=== PATIENT | male | born 1995 | race Caucasian/White ===

== ENCOUNTER 2016-12-07 00:40 | Inpatient (IN) | payer OTHER ==
[2016-12-07] VITALS (20 sets, daily range): BP systolic 109–147; BP diastolic 64–95; PULSE 77–95; TEMP 35.7–38.1; O2SAT 96–100; Ht 180.3 cm; Wt 110.5 kg
[~2016-12-07] VITALS: Ht 180.3 cm; Wt 110.5 kg
[2016-12-07] MEDS ORDERED: RAPID SEQUENCE INDUCTION BAG ONE (00:52)
[2016-12-07] MEDS ORDERED: SODIUM CHLORIDE 0.9% 1000ML 1,000 ML IV STA (01:02)
[2016-12-07] MEDS ORDERED: PROPOFOL IV EMULSION 10 MG/ML 100 ML VIAL IV ONE (01:02)
--- NOTE | 2016-12-07 01:11 | EMERGENCY ROOM VISIT NOTE ---
History Report prepared by Elysia: Chetan Rivas Under the Supervision of: Dr. Jeff Allen D.O. 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 This history is limited secondary to the patient's intoxication. The patient was found unresponsive. He has a bruise to his arm and face. 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 (global) Symptom Intensity: severe Quality: other (ETOH) Timing: constant Review of Systems ROS is limited secondary to the patient's intoxication Past Medical & Surgical Medical Problems: (1) Acute respiratory failure requiring reintubation (2) Alcohol overdose Unable to complete secondary to the patient's intoxication Family History Unable to complete secondary to the patient's intoxication Social History Unable to complete secondary to the patient's intoxication Current/Historical Medications Scheduled PRN Fluticasone Propionate (Nasal) (Flonase Allergy Relief), 1 SPRAY SELVIN DAILY PRN for ALLERGY SX Allergies Coded Allergies: No Known Allergies (Unverified , 12/07/16) Physical Exam Vital Signs Date Time Temp Pulse Resp B/P (MAP) Pulse Ox O2 Delivery O2 Flow Rate FiO2 12/07/16 01:50 106/75 12/07/16 01:45 68 20 99 Mechanical Ventilator 12/07/16 01:40 114/78 12/07/16 01:35 66 20 100 12/07/16 01:30 119/77 12/07/16 01:26 131/87 12/07/16 01:25 71 24 12/07/16 01:12 100 12/07/16 01:10 70 21 122/80 98 Mechanical Ventilator 12/07/16 01:09 98 Mechanical Ventilator 12/07/16 01:08 77 12/07/16 01:01 57 18 139/82 12/07/16 00:45 71 16 79 Room Air Physical Exam GENERAL: Cyanotic in the face, unresponsive upon arrival, pulse ox was less than 72, diaphoretic. HENT: Normocephalic, atraumatic. Oral secretions present. EYES: Normal conjunctiva. Sclera non-icteric. NECK: Supple. No nuchal rigidity. FROM. No JVD. RESPIRATORY: Decreased respiratory rate, but breath sounds are equal. CARDIAC: Regular rate, normal rhythm. Extremities warm and well perfused. Pulses equal. ABDOMEN: Soft, non-distended. No tenderness to palpation. No rebound or guarding. No masses. RECTAL: Deferred. MUSCULOSKELETAL: Chest examination reveals no tenderness. The back is symmetrical on inspection without obvious abnormality. There is no CVA tenderness to palpation. No joint edema. Trauma to the right shoulder with ecchymosis. LOWER EXTREMITIES: Calves are equal size bilaterally and non-tender. No edema. No discoloration. NEURO: Unresponsive. SKIN: No rash or jaundice noted. Medical Decision & Procedures ER Provider Diagnostic Interpretation: Radiology results as stated below per my review and radiologist interpretation: CHEST X-RAY 1 VIEW: Endotracheal tube in good position, no pneumothorax or infiltrate. Per me. CT HEAD: No acute intracranial findings or skull fracture. Sinus disease with some fluid in the sinuses. CT C SPINE: No acute fracture. Straightening cervical lordosis. Endotracheal tube. Possible thyroid nodules. Artifact and lack of soft tissue windows limit evaluation to some degree. Radiologist: Tor Chandler M.D. Laboratory Results 12/07/16 00:50 Red Blood Count 4.86, Mean Corpuscular Volume 83.1, Mean Corpuscular Hemoglobin 29.6, Mean Corpuscular Hemoglobin Concent 35.6, Mean Platelet Volume 8.7, Neutrophils (%) (Auto) 45.2, Lymphocytes (%) (Auto) 43.8, Monocytes (%) (Auto) 7.0, Eosinophils (%) (Auto) 3.6, Basophils (%) (Auto) 0.3, Neutrophils # (Auto) 4.29, Lymphocytes # (Auto) 4.17, Monocytes # (Auto) 0.67, Eosinophils # (Auto) 0.34, Basophils # (Auto) 0.03 12/07/16 00:50 Test 12/07/16 00:50 12/07/16 01:40 White Blood Count 9.51 K/uL (4.8-10.8) Red Blood Count 4.86 M/uL (4.7-6.1) Hemoglobin 14.4 g/dL (14.0-18.0) Hematocrit 40.4 % (42-52) Mean Corpuscular Volume 83.1 fL (80-100) Mean Corpuscular Hemoglobin 29.6 pg (25-34) Mean Corpuscular Hemoglobin Concent 35.6 g/dl (32-36) Platelet Count 253 K/uL (130-400) Mean Platelet Volume 8.7 fL (7.4-10.4) Neutrophils (%) (Auto) 45.2 % Lymphocytes (%) (Auto) 43.8 % Monocytes (%) (Auto) 7.0 % Eosinophils (%) (Auto) 3.6 % Basophils (%) (Auto) 0.3 % Neutrophils # (Auto) 4.29 K/uL (1.4-6.5) Lymphocytes # (Auto) 4.17 K/uL (1.2-3.4) Monocytes # (Auto) 0.67 K/uL (0.11-0.59) Eosinophils # (Auto) 0.34 K/uL (0-0.5) Basophils # (Auto) 0.03 K/uL (0-0.2) RDW Standard Deviation 35.4 fL (36.4-46.3) RDW Coefficient of Variation 11.7 % (11.5-14.5) Immature Granulocyte % (Auto) 0.1 % Immature Granulocyte # (Auto) 0.01 K/uL (0.00-0.02) Prothrombin Time 10.7 SECONDS (9.0-12.0) Prothromb Time International Ratio 1.0 (0.9-1.1) Activated Partial Thromboplast Time 23.3 SECONDS (21.0-31.0) Partial Thromboplastin Ratio 0.9 Anion Gap 6.0 mmol/L (3-11) Estimated GFR () 111.4 Estimated GFR (Non- 96.1 BUN/Creatinine Ratio 14.0 (10-20) Calcium Level 7.9 mg/dl (8.5-10.1) Magnesium Level 2.0 mg/dl (1.8-2.4) Total Bilirubin 0.4 mg/dl (0.2-1) Direct Bilirubin < 0.1 mg/dl (0-0.2) Aspartate Amino Transf (AST/SGOT) 13 U/L (15-37) Alanine Aminotransferase (ALT/SGPT) 20 U/L (12-78) Alkaline Phosphatase 87 U/L (45-117) Total Creatine Kinase 161 U/L (39-308) Total Protein 6.4 gm/dl (6.4-8.2) Albumin 3.5 gm/dl (3.4-5.0) Salicylates Level < 1.7 mg/dl (2.8-20) Acetaminophen Level < 2 ug/ml (10-30) Ethyl Alcohol mg/dL 235.0 mg/dl (0-3) Urine Color YELLOW Urine Appearance CLEAR (CLEAR) Urine pH 5.0 (4.5-7.5) Urine Specific [place] 1.014 (1.000-1.030) Urine Protein NEG (NEG) Urine Glucose (UA) NEG (NEG) Urine Ketones NEG (NEG) Urine Occult Blood TRACE (NEG) Urine Nitrite NEG (NEG) Urine Bilirubin NEG (NEG) Urine Urobilinogen NEG (NEG) Urine Leukocyte Esterase NEG (NEG) Urine WBC (Auto) 1-5 /hpf (0-5) Urine RBC (Auto) 0-4 /hpf (0-4) Urine Hyaline Casts (Auto) 0 /lpf (0-5) Urine Epithelial Cells (Auto) 5-10 /lpf (0-5) Urine Bacteria (Auto) NEG (NEG) Urine Opiates Screen NEG (NEG) Urine Methadone, Qualitative NEG (NEG) Urine Barbiturates NEG (NEG) Urine Phencyclidine (PCP) Level NEG (NEG) Ur Amphetamine/Methamphetamine NEG (NEG) MDMA (Ecstasy) Screen NEG (NEG) Urine Benzodiazepines Screen NEG (NEG) Urine Cocaine Metabolite NEG (NEG) Urine Marijuana (THC) NEG (NEG) Laboratory results reviewed by me Medications Administered Medications (Trade) Dose Ordered Sig/Raul Route Start Time Stop Time Status Last Admin Dose Admin Miscellaneous (Rapid Sequence Induction Bag) 1 ea STK-MED ONCE N/A 12/07/16 00:52 12/07/16 00:53 DC 12/07/16 00:52 1 EA Propofol (Diprivan Iv Emulsion 100ml Vial) 1 dose STK-MED ONCE IV 12/07/16 01:02 12/07/16 01:03 DC 12/07/16 01:02 1 DOSE Sodium Chloride 1,000 ml @ 999 mls/hr Q1H1M STAT IV 12/07/16 01:02 12/07/16 02:02 DC 12/07/16 01:37 999 MLS/HR Propofol (Diprivan Iv Emulsion 100ml Vial) 1 dose UD PRN IV 12/07/16 01:54 12/10/16 01:53 12/07/16 04:18 1 DOSE Midazolam HCl 250 ml @ 0 mls/hr Q0M PRN IV 12/07/16 01:40 01/06/17 01:39 12/07/16 03:02 10 MLS/HR Procedure Endotracheal Intubation Indication: respiratory failure and airway protection secondary to altered mental status. The patient was on 100% oxygen via NRB prior to the procedure. Suction, airway equipment, RSI drugs, respiratory equipment, and appropriate personnel were prepared prior to the initiation of the procedure. A time out was taken. Induction was performed with 20 mg IV Etomidate 120 mg IV Succinylcholine. After observing the clinical benefit of the medications, the airway was easily visualized utilizing a laryngoscope. A 7.5 size ETT tube was placed atraumatically to 23 cm using standard technique with good inline stabilization provided by another provider. The cuff inflated without signs of malfunction. There were bilateral breath sounds, positive colormetric change, no gastric sounds, a good capnography waveform, and post procedure pulse oximetry was 98%. Post intubation sedation and paralysis was administered using Diprivan. There were no complications. ECG Indication: altered mental status Rate (beats per minute): 66 Rhythm: normal sinus Findings: no acute ischemic change, other (Normal intervals, normal axis) ED Course 0044: The patient was evaluated in room B11A. A complete history and physical exam was performed. 0055: I performed an endotracheal intubation at this time. Please see the procedure note for more information. 0102: Ordered Sodium Chloride 1000 ml @ 999 mls/hr IV 0131: Upon reexamination, the patient was resting. I discussed the test results and treatment plan with Dr. Violet Sun [facility] [place] The patient will be evaluated for further management. Medical Decision Differential diagnosis: Etiologies such as alcohol intoxication, toxicologic, infection, hypoglycemia, electrolyte abnormalities, cardiac sources, intracerebral event, neurologic, as well as others were entertained. Immediately upon arrival the patient was hypoxic cyanotic and blue in the face with sonorous respirations. Patient reportedly overdosed on alcohol. There is no obvious head trauma seen there is reported trauma to his right shoulder with ecchymosis. No history available to me from the patient. Patient was moved immediately to the critical care room and was intubated by me for airway protection and obtundation; case is discussed with the hospitalist for admission for ethanol intoxication he did undergo CT imaging which was negative Medication Reconcilliation Current Medication List: was personally reviewed by me Blood Pressure Screening Patient's blood pressure: Normal blood pressure Blood pressure disposition: Did not require urgent referral Consults Time Called: 0128 Consulting Physician: Dr. Lazo - LAYA Returned Call: [phone] Discussed the patient's case. The patient will be evaluated for further treatment and disposition. Impression Primary Impression: Acute alcohol intoxication Additional Impressions: Hypoxia Acute hypokalemia Scribe Attestation The scribe's documentation has been prepared under my direction and personally reviewed by me in its entirety. I confirm that the note above accurately reflects all work, treatment, procedures, and medical decision making performed by me. Departure Information Dispostion Being Evaluated By Hospitalist Referrals No Doctor, Assigned (PCP) Patient Instructions My [facility] Problem Qualifiers
[2016-12-07 01:12] LABS: BASO % 0.3 %; BASO ABS # 0.03 K/uL (0-0.2); COMPLETE YES; EOS % 3.6 %; HEMATOCRIT 40.4 % (42-52); IG% 0.1 %; LYMPH % 43.8 %; LYMPH ABS # 4.17 K/uL (1.2-3.4); MEAN CELL VOLUME 83.1 fL (80-100); MEAN CORPUSCULAR HEMOGLOBIN 29.6 pg (25-34); MEAN CORPUSCULAR HGB CONC 35.6 g/dl (32-36); MEAN PLATELET VOLUME 8.7 fL (7.4-10.4); NEUT % 45.2 %; PLATELET COUNT 253 K/uL (130-400); RED BLOOD COUNT 4.86 M/uL (4.7-6.1); WHITE BLOOD COUNT 9.51 K/uL (4.8-10.8)
[2016-12-07 01:28] LABS: PARTIAL THROMBOPLASTIN RATIO 0.9; PROTHROMBIN TIME (PATIENT) 10.7 SECONDS (9.0-12.0)
[2016-12-07 01:29] LABS: ALT/SGPT 20 U/L (12-78); AST/SGOT 13 U/L (15-37); BLOOD UREA NITROGEN 15 mg/dl (7-18); CALCIUM 7.9 mg/dl (8.5-10.1); CARBON DIOXIDE 27 mmol/L (21-32); CHLORIDE 108 mmol/L (98-107); GLUCOSE 142 mg/dl (70-99); POTASSIUM 3.2 mmol/L (3.5-5.1); SODIUM 141 mmol/L (136-145)
[2016-12-07 01:32] LABS: ALKALINE PHOSPHATASE 87 U/L (45-117)
[2016-12-07] MEDS ORDERED: MIDAZOLAM 125MG/250ML D5W 250 ML IV PRN (01:40)
[2016-12-07] MEDS ORDERED: MoRPHine SULFATE 2 MG/ML CARP IV PRN (01:45)
[2016-12-07 01:46] LABS: ACETAMINOPHEN < 2 ug/ml (10-30)
[2016-12-07 01:51] LABS: URINE APPEARANCE CLEAR (CLEAR); URINE BILIRUBIN NEG (NEG); URINE COLOR YELLOW; URINE NITRITE NEG (NEG); URINE SPECIFIC GRAVITY 1.014 (1.000-1.030); UROBILINOGEN NEG (NEG)
[2016-12-07] MEDS ORDERED: PROPOFOL IV EMULSION 10 MG/ML 100 ML VIAL IV PRN (01:54)
[2016-12-07 02:03] LABS: MANUAL MICROSCOPIC REQUIRED? NO; REVIEW REQ? NO
[2016-12-07] MEDS ORDERED: FLUT0.15 NAE (02:08)
[2016-12-07 02:09] LABS: BENZODIAZEPINE, URINE NEG (NEG); COCAINE,URINE NEG (NEG); PHENCYCLIDINE, URINE NEG (NEG)
[2016-12-07] MEDS ORDERED: NSS + 20MEQ KCL 1000ML 1,000 ML IV SCH (03:00)
--- NOTE | 2016-12-07 03:33 | History and Physical ---
History & Physical Date & Time of Service: Dec 07, 2016 at 03:17 Chief Complaint: Acute Respiratory Failure Requiring Reintubation, Primary Care Physician: No Doctor, Assigned History of Present Illness Source: hospital records The patient is a 21-year-old male who presents emergency department with alcohol overdose after being found unresponsive just prior to arrival. He has a bruise to his arm and face. In the emergency department he was intubated for airway protection by ED personnel. His history of present illness is otherwise limited, as the patient is unresponsive. 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 Physical Exam Vital Signs Date Time Temp Pulse Resp B/P (MAP) Pulse Ox O2 Delivery O2 Flow Rate FiO2 12/07/16 03:12 50 12/07/16 03:00 36.2 83 13 122/78 (93) 100 Mechanical Ventilator 50 12/07/16 02:45 36.1 87 13 147/88 (107) 100 Mechanical Ventilator 50 12/07/16 02:33 82 13 132/76 (94) 100 Mechanical Ventilator 50 12/07/16 02:15 74 20 119/86 100 12/07/16 02:10 77 13 119/86 (97) 100 Mechanical Ventilator 50 12/07/16 02:00 77 13 109/81 (90) 100 Mechanical Ventilator 50 12/07/16 01:50 106/75 12/07/16 01:45 68 20 99 Mechanical Ventilator 12/07/16 01:40 114/78 12/07/16 01:35 66 20 100 12/07/16 01:30 119/77 12/07/16 01:26 131/87 12/07/16 01:25 71 24 12/07/16 01:12 100 12/07/16 01:10 70 21 122/80 98 Mechanical Ventilator 12/07/16 01:09 98 Mechanical Ventilator 12/07/16 01:08 77 9/9/17 01:01 57 18 139/82 12/07/16 00:45 71 16 79 Room Air The patient is intubated, unresponsive and sedated. HEENT--PERRL, EOMI, mucous membranes and oropharynx dry. Neck--supple, no JVD or bruits, thyroid normal, trachea midline, no adenopathy. Heart--normal S1 and S2, no extra beats, no murmurs, rubs or gallops. Lungs--few coarse breath sounds bilaterally. Abdomen--normal bowel sounds and soft. nondistended, no hernias or masses, no organomegaly. Extremities--no cyanosis, clubbing or edema. There are good distal pulses b/l. Dermatologic--normal skin turgor, normal color, warm and dry, no abnormal lymph nodes, no rash. Neurologic--grossly normal, deferred exam due to intubated state Rheumatologic--sedated and intubated Psychiatric--sedated and intubated Diagnostics Laboratory Results Results Past 24 Hours Test 12/07/16 00:50 12/07/16 01:40 Range/Units White Blood Count 9.51 4.8-10.8 K/uL Red Blood Count 4.86 4.7-6.1 M/uL Hemoglobin 14.4 14.0-18.0 g/dL Hematocrit 40.4 42-52 % Mean Corpuscular Volume 83.1 80-100 fL Mean Corpuscular Hemoglobin 29.6 25-34 pg Mean Corpuscular Hemoglobin Concent 35.6 32-36 g/dl Platelet Count 253 130-400 K/uL Mean Platelet Volume 8.7 7.4-10.4 fL Neutrophils (%) (Auto) 45.2 % Lymphocytes (%) (Auto) 43.8 % Monocytes (%) (Auto) 7.0 % Eosinophils (%) (Auto) 3.6 % Basophils (%) (Auto) 0.3 % Neutrophils # (Auto) 4.29 1.4-6.5 K/uL Lymphocytes # (Auto) 4.17 1.2-3.4 K/uL Monocytes # (Auto) 0.67 0.11-0.59 K/uL Eosinophils # (Auto) 0.34 0-0.5 K/uL Basophils # (Auto) 0.03 0-0.2 K/uL RDW Standard Deviation 35.4 36.4-46.3 fL RDW Coefficient of Variation 11.7 11.5-14.5 % Immature Granulocyte % (Auto) 0.1 % Immature Granulocyte # (Auto) 0.01 0.00-0.02 K/uL Prothrombin Time 10.7 9.0-12.0 SECONDS Prothromb Time International Ratio 1.0 0.9-1.1 Activated Partial Thromboplast Time 23.3 21.0-31.0 SECONDS Partial Thromboplastin Ratio 0.9 Sodium Level 141 136-145 mmol/L Potassium Level 3.2 3.5-5.1 mmol/L Chloride Level 108 98-107 mmol/L Carbon Dioxide Level 27 21-32 mmol/L Anion Gap 6.0 3-11 mmol/L Blood Urea Nitrogen 15 7-18 mg/dl Creatinine 1.10 0.60-1.40 mg/dl Estimated GFR () 111.4 Estimated GFR (Non- 96.1 BUN/Creatinine Ratio 14.0 10-20 Random Glucose 142 70-99 mg/dl Calcium Level 7.9 8.5-10.1 mg/dl Magnesium Level 2.0 1.8-2.4 mg/dl Total Bilirubin 0.4 0.2-1 mg/dl Direct Bilirubin < 0.1 0-0.2 mg/dl Aspartate Amino Transf (AST/SGOT) 13 15-37 U/L Alanine Aminotransferase (ALT/SGPT) 20 12-78 U/L Alkaline Phosphatase 87 45-117 U/L Total Creatine Kinase 161 39-308 U/L Total Protein 6.4 6.4-8.2 gm/dl Albumin 3.5 3.4-5.0 gm/dl Salicylates Level < 1.7 2.8-20 mg/dl Acetaminophen Level < 2 10-30 ug/ml Ethyl Alcohol mg/dL 235.0 0-3 mg/dl Urine Color YELLOW Urine Appearance CLEAR CLEAR Urine pH 5.0 4.5-7.5 Urine Specific [place] 1.014 1.000-1.030 Urine Protein NEG NEG Urine Glucose (UA) NEG NEG Urine Ketones NEG NEG Urine Occult Blood TRACE NEG Urine Nitrite NEG NEG Urine Bilirubin NEG NEG Urine Urobilinogen NEG NEG Urine Leukocyte Esterase NEG NEG Urine WBC (Auto) 1-5 0-5 /hpf Urine RBC (Auto) 0-4 0-4 /hpf Urine Hyaline Casts (Auto) 0 0-5 /lpf Urine Epithelial Cells (Auto) 5-10 0-5 /lpf Urine Bacteria (Auto) NEG NEG Urine Opiates Screen NEG NEG Urine Methadone, Qualitative NEG NEG Urine Barbiturates NEG NEG Urine Phencyclidine (PCP) Level NEG NEG Ur Amphetamine/Methamphetamine NEG NEG MDMA (Ecstasy) Screen NEG NEG Urine Benzodiazepines Screen NEG NEG Urine Cocaine Metabolite NEG NEG Urine Marijuana (THC) NEG NEG Microbiology Results 12/07/16 MRSA DNA Surveillance Screen, Received Pending Diagnostic Radiology CT of the head shows no acute findings. CT of the cervical spine shows paraspinal muscle spasm, otherwise no acute findings. CXR normal Impression Assessment and Plan Alcohol overdose/unresponsive state/intubated for airway protection-- The patient will be admitted to the ICU. Continue current ventilator settings, and check an ABG in 30 minutes and every morning. Mildly hypokalemic with a potassium of 3.2, and will be started normal saline with KCl 20 mEq at 25 ML's per hour. Mildly hyperglycemic with blood sugar of 142, with hemoglobin A1c. Follow serial BMP and magnesium levels. Chest x-ray reviewed with endotracheal tube in good position. CT of head and cervical spine show no acute findings. Propofol infusion for sedation. Add Versed infusion if propofol maxed. If necessary, we'll change to Precedex. Total critical care time 55 minutes Level of Care Critical Care Advanced Directives Existing Advance Directive: No Resuscitation Status FULL RESUSCITATION VTE Prophylaxis VTE Risk Assessment Done? Y/N: Yes Risk Level: Moderate Given or contraindicated: SCD's Social Service Consult None Apply
--- NOTE | 2016-12-07 06:20 | DIAGNOSTIC IMAGING REPORT ---
CERVICAL SPINE W/O CT DOSE: HISTORY: Trauma trauma TECHNIQUE: Multiaxial CT images of the cervical spine were performed and reformatted in the sagittal and coronal plane without the use of contrast. A dose lowering technique was utilized adhering to the principles of ALARA. COMPARISON: None. FINDINGS: No fractures. No subluxation. Prevertebral soft tissues and the C1-C2 interval are intact. No pneumothorax. IMPRESSION: No fractures within the cervical spine. Endotracheal tube in position The above report was generated using voice recognition software. It may contain grammatical, syntax or spelling errors. Electronically signed by: Josse Whitman M.D. 12/07/2016 6:19 AM Dictated Date/Time: 12/07/2016 6:17 AM
--- NOTE | 2016-12-07 06:21 | DIAGNOSTIC IMAGING REPORT ---
HEAD WITHOUT CONTRAST (CT) CT DOSE: 1182.23 mGy.cm HISTORY: Trauma trauma TECHNIQUE: Multiaxial CT images of the head were performed without the use of intravenous contrast. A dose lowering technique was utilized adhering to the principles of ALARA. Comparison: None. Findings: Moderate mucosal thickening of the sinuses The calvarium and skull base are intact. The ventricles and sulci are within normal limits. There is no mass, hematoma, midline shift, or acute infarct. Impression: No acute intracranial abnormality. Moderate mucosal thickening of the sinuses The above report was generated using voice recognition software. It may contain grammatical, syntax or spelling errors. Electronically signed by: Josse Whitman M.D. 12/07/2016 6:20 AM Dictated Date/Time: 12/07/2016 6:19 AM
--- NOTE | 2016-12-07 06:22 | DIAGNOSTIC IMAGING REPORT ---
CHEST ONE VIEW PORTABLE CLINICAL HISTORY: et tube position COMPARISON STUDY: No previous studies for comparison. FINDINGS: Endotracheal tube 4 cm above the beatrice. Lungs are clear. Diaphragms smooth. Heart top limits normal terms of size. IMPRESSION: Endotracheal tube 4 cm above the beatrice. The lungs are clear. The above report was generated using voice recognition software. It may contain grammatical, syntax or spelling errors. Electronically signed by: Josse Whitman M.D. 12/07/2016 6:21 AM Dictated Date/Time: 12/07/2016 6:20 AM
[2016-12-07] MEDS ORDERED: PNEUMOCOCCAL ADMINISTRATION CHARGE ONE (08:00)
[2016-12-07] MEDS ORDERED: PNEUMOCOCCAL POLYSACCHARIDES 25 MCG/0.5 ML VIAL/SYR IM. ONE (08:00)
[2016-12-07] MEDS ORDERED: DexMEDEtomidine IV DRIP IV STA (08:57)
[2016-12-07] MEDS ORDERED: THIAMINE HCL 100 MG/ML 2 ML VIAL IM ONE (09:00)
[2016-12-07] MEDS ORDERED: THIAMINE HCL 100 MG/ML 2 ML VIAL IM SCH (09:00)
[2016-12-07] MEDS ORDERED: CALCIUM GLUCONATE 10% 1,000 MG in SODIUM CHLORIDE 0.9% 50ML 50 ML IV STA (09:01)
[2016-12-07] MEDS ORDERED: DexMEDEtomidine HCL INJ 200 MCG in SODIUM CHLORIDE 0.9% 50ML 48 ML IV PRN (09:15)
[2016-12-07] MEDS: POTASSIUM CHLR 10 MEQ / WTR 10 MEQ in PREMIXED WATER 100 ML IV SCH ×3 (09:25→11:15)
--- NOTE | 2016-12-07 09:27 | Critical Care Consultation ---
Critical Care Consultation Date of Consultation: Dec 07, 2016. Attending Physician: Adair Sen M.D. Reason for Consultation: alcohol intoxication with respiratory compromise due to inability to protect airway intubated History of Present Illness This is a 21 yo male patient who is otherwise healthy per his parents with no chronic medical illnesses except for seasonal allergies for which he uses flonase. He was brought in to the ED unresponsive and found to have al alcohol level of 235, reported to have a briuse on his face and arm and was intubated sedated and brought to MICU. I believe because he must have been unable to protect the airway. His ICU course has been uneventful CT head and C spine are negative for fractures of focal pathology. Only muscle spasm in the neck was seen. Parents at bedside deny the patient has any other recreational drug use and he has a negative urine tox screen for detectable drugs. 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 Allergies Coded Allergies: No Known Allergies (Unverified , 12/07/16) Home Medications Scheduled PRN Fluticasone Propionate (Nasal) (Flonase Allergy Relief), 1 SPRAY SELVIN DAILY PRN for ALLERGY SX Current Inpatient Medications Current Inpatient Medications Medications (Trade) Dose Ordered Sig/Raul Route Start Time Stop Time Status Last Admin Dose Admin Potassium Chloride/Sodium Chloride 1,000 ml @ 125 mls/hr Q8H IV 12/07/16 03:00 01/06/17 02:59 12/07/16 03:17 125 MLS/HR Morphine Sulfate (MoRPHine SULFATE INJ) 2 mg Q2H PRN IV 12/07/16 01:45 12/21/16 01:44 Propofol (Diprivan Iv Emulsion 100ml Vial) 1 dose UD PRN IV 12/07/16 01:54 12/10/16 01:53 12/07/16 04:18 1 DOSE Midazolam HCl 250 ml @ 0 mls/hr Q0M PRN IV 12/07/16 01:40 01/06/17 01:39 12/07/16 03:02 10 MLS/HR Review of Systems The parents say he was not complaining of any other issues but he had been with friends so it is unclear and he is unable to provide ROS. Physical Exam Date Time Temp Pulse Resp B/P (MAP) Pulse Ox O2 Delivery O2 Flow Rate FiO2 12/07/16 05:21 50 12/07/16 05:15 36.3 84 21 125/81 (96) 100 Mechanical Ventilator 50 12/07/16 05:00 36.1 87 21 131/87 (102) 100 Mechanical Ventilator 50 12/07/16 04:45 36.0 88 18 131/95 (107) 100 Mechanical Ventilator 50 12/07/16 04:30 35.8 86 19 140/89 (106) 100 Mechanical Ventilator 50 12/07/16 04:15 35.7 93 19 132/92 (105) 100 Mechanical Ventilator 50 12/07/16 04:00 35.7 83 18 125/82 (96) 100 Mechanical Ventilator 50 12/07/16 04:00 50 12/07/16 04:00 100 Mechanical Ventilator 50 12/07/16 03:45 35.8 84 13 119/79 (92) 100 Mechanical Ventilator 50 12/07/16 03:30 35.9 86 19 120/75 (90) 100 Mechanical Ventilator 50 12/07/16 03:15 36.1 78 13 120/76 (91) 100 Mechanical Ventilator 50 12/07/16 03:12 50 12/07/16 03:00 36.2 83 13 122/78 (93) 100 Mechanical Ventilator 50 12/07/16 02:45 36.1 87 13 147/88 (107) 100 Mechanical Ventilator 50 12/07/16 02:45 36.1 87 147/88 98 Mechanical Ventilator 50 12/07/16 02:33 82 13 132/76 (94) 100 Mechanical Ventilator 50 12/07/16 02:15 74 20 119/86 100 12/07/16 02:10 77 13 119/86 (97) 100 Mechanical Ventilator 50 12/07/16 02:00 77 13 109/81 (90) 100 Mechanical Ventilator 50 12/07/16 01:50 106/75 12/07/16 01:45 68 20 99 Mechanical Ventilator 12/07/16 01:40 114/78 12/07/16 01:35 66 20 100 12/07/16 01:30 119/77 12/07/16 01:26 131/87 12/07/16 01:25 71 24 12/07/16 01:12 100 9/9/17 01:10 70 21 122/80 98 Mechanical Ventilator 12/07/16 01:09 98 Mechanical Ventilator 12/07/16 01:08 77 12/07/16 01:01 57 18 139/82 12/07/16 00:45 71 16 79 Room Air General Appearance: well-appearing, other (sedated intubated with trach collar but moves head and all four extremities to tacticle stimuli) Head: normocephalic, atraumatic, other (I see no large bruises on the face ) Eyes: PERRLA, no discharge, sclerae normal ENT: other (sedated intubated no broken teeth. no blood in the oral cavity ET tube in place rosa 25 cm on the lip) Neck: no stridor, other (cervical collar in place) Respiratory: breath sounds normal, clear to auscultation Cardiovasular: regular rate/rhythm, normal S1S2, no M/G/R Abdomen: non tender, no guarding, other (soft ) Genitourinary - Male: external genitalia normal Upper Extremities: no edema, no deformity Lower Extremities: no edema, no deformity Pulses: radial (R) (2+), radial (L) (2+), dorsalis pedis (R) (2+), dorsalis pedis (L) (2+) Neuro: other (sedated and intubated but moves all 4 extremities) Laboratory Results Last 24 Hours Test 12/07/16 00:50 12/07/16 01:40 12/07/16 06:37 White Blood Count 9.51 K/uL Red Blood Count 4.86 M/uL Hemoglobin 14.4 g/dL Hematocrit 40.4 % Mean Corpuscular Volume 83.1 fL Mean Corpuscular Hemoglobin 29.6 pg Mean Corpuscular Hemoglobin Concent 35.6 g/dl Platelet Count 253 K/uL Mean Platelet Volume 8.7 fL Neutrophils (%) (Auto) 45.2 % Lymphocytes (%) (Auto) 43.8 % Monocytes (%) (Auto) 7.0 % Eosinophils (%) (Auto) 3.6 % Basophils (%) (Auto) 0.3 % Neutrophils # (Auto) 4.29 K/uL Lymphocytes # (Auto) 4.17 K/uL Monocytes # (Auto) 0.67 K/uL Eosinophils # (Auto) 0.34 K/uL Basophils # (Auto) 0.03 K/uL RDW Standard Deviation 35.4 fL RDW Coefficient of Variation 11.7 % Immature Granulocyte % (Auto) 0.1 % Immature Granulocyte # (Auto) 0.01 K/uL Prothrombin Time 10.7 SECONDS Prothromb Time International Ratio 1.0 Activated Partial Thromboplast Time 23.3 SECONDS Partial Thromboplastin Ratio 0.9 Sodium Level 141 mmol/L Potassium Level 3.2 mmol/L Chloride Level 108 mmol/L Carbon Dioxide Level 27 mmol/L Anion Gap 6.0 mmol/L Blood Urea Nitrogen 15 mg/dl Creatinine 1.10 mg/dl Estimated GFR () 111.4 Estimated GFR (Non- 96.1 BUN/Creatinine Ratio 14.0 Random Glucose 142 mg/dl Calcium Level 7.9 mg/dl Magnesium Level 2.0 mg/dl Total Bilirubin 0.4 mg/dl Direct Bilirubin < 0.1 mg/dl Aspartate Amino Transf (AST/SGOT) 13 U/L Alanine Aminotransferase (ALT/SGPT) 20 U/L Alkaline Phosphatase 87 U/L Total Creatine Kinase 161 U/L Total Protein 6.4 gm/dl Albumin 3.5 gm/dl Salicylates Level < 1.7 mg/dl Acetaminophen Level < 2 ug/ml Ethyl Alcohol mg/dL 235.0 mg/dl Urine Color YELLOW Urine Appearance CLEAR Urine pH 5.0 Urine Specific [place] 1.014 Urine Protein NEG Urine Glucose (UA) NEG Urine Ketones NEG Urine Occult Blood TRACE Urine Nitrite NEG Urine Bilirubin NEG Urine Urobilinogen NEG Urine Leukocyte Esterase NEG Urine WBC (Auto) 1-5 /hpf Urine RBC (Auto) 0-4 /hpf Urine Hyaline Casts (Auto) 0 /lpf Urine Epithelial Cells (Auto) 5-10 /lpf Urine Bacteria (Auto) NEG Urine Opiates Screen NEG Urine Methadone, Qualitative NEG Urine Barbiturates NEG Urine Phencyclidine (PCP) Level NEG Ur Amphetamine/Methamphetamine NEG MDMA (Ecstasy) Screen NEG Urine Benzodiazepines Screen NEG Urine Cocaine Metabolite NEG Urine Marijuana (THC) NEG Bedside Glucose 107 mg/dl Diagnostic Results CT head and CT neck show no bleeds fractures or hematomas neck muscle spasm Assessment & Plan 21 yo admitted with alcohol intoxication required intubation for airway protection. he is hypokalemic and hypocalcemic and those are being addressed neuro add thiamine and folate PO DC propofol start precedex and titrate to maintain patient cooperation Will assess for pain and movement prior to neck collar removal respiratory CPAPOSV once awake ABG look good cardiovascular no active issues renal replete K and Ca UO adequate will DC morin ID no foci of infection no evidence of aspiration DVT prophylaxis will ambulate once awake advance diet to normal when extubated Patient is critically ill and I spent a total of 40 minutes of CC time managing him revieweing chart and obtaining history from parents
[2016-12-07] MEDS ORDERED: THIAMINE HCL INJ 100 MG in SYRINGE 9 ML IV SCH (09:30)
[2016-12-07 10:40] LABS: CKMB/CK RATIO 1.1 (0-3.0)
[2016-12-07 10:42] LABS: ISTAT ALLEN TEST Pass; ISTAT ARTERIAL BLOOD GAS HCO3 25 meq/L (19-24); ISTAT ARTERIAL BLOOD GAS PCO2 48 mmHg (35-46); ISTAT ARTERIAL BLOOD GAS PO2 211 mmHg (80-95); ISTAT ARTERIAL BLOOD GAS pH 7.33 (7.35-7.45); ISTAT CARBON DIOXIDE 26 mEq/l (24-31); ISTAT DELIVERY SYSTEM Ventilator; ISTAT FIO2 40 %; ISTAT PEEP 5; ISTAT RATE 22; ISTAT SITE R Radial; VE 10.4; Vt 463
--- NOTE | 2016-12-07 13:12 | Progress Note ---
Subjective Date of Service: Dec 07, 2016. Subjective Patient is sedated and ventilated family is at the bedside origin respiratory failure felt to be alcohol, which is c-collar is in place as the patient cannot fully have a C-spine clearance was awake and alert CT scan has been negative. Discussed with intensive care doctor this morning we will attempt to extubate him once his sedation from his alcohol is resolved Problem List Medical Problems: (1) Acute alcohol intoxication Status: Acute (2) Acute hypokalemia Status: Acute (3) Hypoxia Status: Acute Review of Systems Review of systems is unable to be obtained due to sedation from alcohol and mechanical ventilation Objective Vital Signs Date Time Temp Pulse Resp B/P (MAP) Pulse Ox O2 Delivery O2 Flow Rate FiO2 12/07/16 10:00 38.1 85 21 127/70 (89) 100 Mechanical Ventilator 30 12/07/16 08:00 100 Mechanical Ventilator 30 12/07/16 08:00 30 12/07/16 08:00 37.8 95 21 128/79 (95) 100 Mechanical Ventilator 30 12/07/16 05:21 50 12/07/16 05:15 36.3 84 21 125/81 (96) 100 Mechanical Ventilator 50 12/07/16 05:00 36.1 87 21 131/87 (102) 100 Mechanical Ventilator 50 12/07/16 04:45 36.0 88 18 131/95 (107) 100 Mechanical Ventilator 50 12/07/16 04:30 35.8 86 19 140/89 (106) 100 Mechanical Ventilator 50 12/07/16 04:15 35.7 93 19 132/92 (105) 100 Mechanical Ventilator 50 12/07/16 04:00 35.7 83 18 125/82 (96) 100 Mechanical Ventilator 50 12/07/16 04:00 50 12/07/16 04:00 100 Mechanical Ventilator 50 12/07/16 03:45 35.8 84 13 119/79 (92) 100 Mechanical Ventilator 50 12/07/16 03:30 35.9 86 19 120/75 (90) 100 Mechanical Ventilator 50 12/07/16 03:15 36.1 78 13 120/76 (91) 100 Mechanical Ventilator 50 12/07/16 03:12 50 12/07/16 03:00 36.2 83 13 122/78 (93) 100 Mechanical Ventilator 50 12/07/16 02:45 36.1 87 13 147/88 (107) 100 Mechanical Ventilator 50 12/07/16 02:45 36.1 87 147/88 98 Mechanical Ventilator 50 12/07/16 02:33 82 13 132/76 (94) 100 Mechanical Ventilator 50 12/07/16 02:15 74 20 119/86 100 12/07/16 02:10 77 13 119/86 (97) 100 Mechanical Ventilator 50 12/07/16 02:00 77 13 109/81 (90) 100 Mechanical Ventilator 50 12/07/16 01:50 106/75 12/07/16 01:45 68 20 99 Mechanical Ventilator 12/07/16 01:40 114/78 12/07/16 01:35 66 20 100 12/07/16 01:30 119/77 12/07/16 01:26 131/87 12/07/16 01:25 71 24 12/07/16 01:12 100 12/07/16 01:10 70 21 122/80 98 Mechanical Ventilator 12/07/16 01:09 98 Mechanical Ventilator 12/07/16 01:08 77 12/07/16 01:01 57 18 139/82 12/07/16 00:45 71 16 79 Room Air Physical Exam General Appearance: WD/WN, + mild distress Eyes: PERRL, sclerae normal Respiratory/Chest: chest non-tender, normal breath sounds Cardiovascular: regular rate, rhythm, no murmur Abdomen: normal bowel sounds, soft Extremities: normal inspection, no pedal edema Skin: normal color, warm/dry, no rash Laboratory Results Last 24 Hours Test 12/07/16 00:50 12/07/16 01:40 12/07/16 06:37 12/07/16 07:58 White Blood Count 9.51 K/uL Red Blood Count 4.86 M/uL Hemoglobin 14.4 g/dL Hematocrit 40.4 % Mean Corpuscular Volume 83.1 fL Mean Corpuscular Hemoglobin 29.6 pg Mean Corpuscular Hemoglobin Concent 35.6 g/dl Platelet Count 253 K/uL Mean Platelet Volume 8.7 fL Neutrophils (%) (Auto) 45.2 % Lymphocytes (%) (Auto) 43.8 % Monocytes (%) (Auto) 7.0 % Eosinophils (%) (Auto) 3.6 % Basophils (%) (Auto) 0.3 % Neutrophils # (Auto) 4.29 K/uL Lymphocytes # (Auto) 4.17 K/uL Monocytes # (Auto) 0.67 K/uL Eosinophils # (Auto) 0.34 K/uL Basophils # (Auto) 0.03 K/uL RDW Standard Deviation 35.4 fL RDW Coefficient of Variation 11.7 % Immature Granulocyte % (Auto) 0.1 % Immature Granulocyte # (Auto) 0.01 K/uL Prothrombin Time 10.7 SECONDS Prothromb Time International Ratio 1.0 Activated Partial Thromboplast Time 23.3 SECONDS Partial Thromboplastin Ratio 0.9 Sodium Level 141 mmol/L Potassium Level 3.2 mmol/L Chloride Level 108 mmol/L Carbon Dioxide Level 27 mmol/L Anion Gap 6.0 mmol/L Blood Urea Nitrogen 15 mg/dl Creatinine 1.10 mg/dl Estimated GFR () 111.4 Estimated GFR (Non- 96.1 BUN/Creatinine Ratio 14.0 Random Glucose 142 mg/dl Calcium Level 7.9 mg/dl Magnesium Level 2.0 mg/dl Total Bilirubin 0.4 mg/dl Direct Bilirubin < 0.1 mg/dl Aspartate Amino Transf (AST/SGOT) 13 U/L Alanine Aminotransferase (ALT/SGPT) 20 U/L Alkaline Phosphatase 87 U/L Total Creatine Kinase 161 U/L Total Protein 6.4 gm/dl Albumin 3.5 gm/dl Salicylates Level < 1.7 mg/dl Acetaminophen Level < 2 ug/ml Ethyl Alcohol mg/dL 235.0 mg/dl Urine Color YELLOW Urine Appearance CLEAR Urine pH 5.0 Urine Specific [place] 1.014 Urine Protein NEG Urine Glucose (UA) NEG Urine Ketones NEG Urine Occult Blood TRACE Urine Nitrite NEG Urine Bilirubin NEG Urine Urobilinogen NEG Urine Leukocyte Esterase NEG Urine WBC (Auto) 1-5 /hpf Urine RBC (Auto) 0-4 /hpf Urine Hyaline Casts (Auto) 0 /lpf Urine Epithelial Cells (Auto) 5-10 /lpf Urine Bacteria (Auto) NEG Urine Opiates Screen NEG Urine Methadone, Qualitative NEG Urine Barbiturates NEG Urine Phencyclidine (PCP) Level NEG Ur Amphetamine/Methamphetamine NEG MDMA (Ecstasy) Screen NEG Urine Benzodiazepines Screen NEG Urine Cocaine Metabolite NEG Urine Marijuana (THC) NEG Bedside Glucose 107 mg/dl Blood Gas Sample Site R Radial Bedside Blood Gas pH (LAB) 7.33 Bedside Blood Gas pCO2 (LAB) 48 mmHg Bedside Blood Gas pO2 (LAB) 211 mmHg Bedside Blood Gas HCO3 (LAB) 25 meq/L Bedside Blood Gas Total CO2 26 mEq/l Bedside Blood Gas Base Excess (LAB) -1.0 meq/L Bedside Blood Gas O2 Saturation 100.0 % Dylan Test Pass Oxygen Delivery Device Ventilator Bedside Oxygen Rate (breaths/min) 22 Blood Gas Minute Ventilation 10.4 Bedside FiO2 40 % Blood Gas Tidal Volume 463 Blood Gas PEEP 5 Test 12/07/16 09:42 12/07/16 12:56 Total Creatine Kinase 805 U/L Creatine Kinase MB 8.5 ng/ml Creatine Kinase MB Ratio 1.1 Troponin I < 0.015 ng/ml Bedside Glucose 93 mg/dl Assessment and Plan 21-year-old male intubated for protection of airway with acute alcohol intoxication Acute respiratory failure with supportive ventilation overnight once alcohol sedation is resolved attempts at extubation will be directed by gunner's mate Rigid cervical collar in place until patient's awake and alert Mother and father at the bedside and were updated on condition
[2016-12-07] MEDS ORDERED: SODIUM CHLORIDE 0.9% 1000ML 1,000 ML IV ONE (13:30)
[2016-12-07 15:05] LABS: BUN/CREATININE RATIO 8.5 (10-20); CALCIUM 8.3 mg/dl (8.5-10.1); CREATININE 1.1 mg/dl (0.60-1.40); PHOSPHORUS 3.7 mg/dl (2.5-4.9); POTASSIUM 4.4 mmol/L (3.5-5.1)
--- NOTE | 2016-12-07 16:23 | Discharge Instructions ---
Discharge Instructions Date of Service Dec 07, 2016. Admission Reason for Admission: Acute Respiratory Failure Requiring Reintubation, Discharge Discharge Diagnosis / Problem: acute alcohol intoxication Discharge Goals Goal(s): Diagnostic testing, Therapeutic intervention Activity Recommendations Activity Limitations: resume your previous activity . Current Hospital Diet Patient's current hospital diet: Regular Diet Discharge Diet Recommended Diet: Regular Diet Pending Studies Studies pending at discharge: no Medical Emergencies . Who to Call and When: Medical Emergencies: If at any time you feel your situation is an emergency, please call 911 immediately. . Non-Emergent Contact Non-Emergency issues call your: Primary Care Provider Call Non-Emergent contact if: temperature is above 101, your pain is unusual for you . . "Provider Documentation" section prepared by Adair Sen. . VTE Core Measure Inpt VTE Proph given/why not?: SCD's
[2016-12-07] MEDS ORDERED: SUCCINYLCHOLINE CHLORIDE 20 MG/ML 10 ML VIAL IV ONE (17:34)
[2016-12-07] MEDS ORDERED: ETOMIDATE 2 MG/ML 20 ML VIAL IV ONE (17:34)
--- NOTE | 2016-12-10 12:22 | Discharge Summary ---
Discharge Summary Date of Service Dec 10, 2016. Discharge Summary Admission Date: Dec 07, 2016 at 01:56 Discharge Date: Dec 07, 2016 Discharge Disposition: Home Principal Diagnosis: alcohol overdose Immunizations: Have You Had Influenza Vaccine: Unknown History of Tetanus Vaccine?: Unknown History of Pneumococcal: Unknown History of Hepatitis B Vaccine: Unknown Medication Reconciliation Continued Medications: Fluticasone Propionate (Nasal) (Flonase Allergy Relief) 50 Mcg/Act Spr 1 SPRAY SELVIN DAILY PRN for ALLERGY SX Discharge Exam please see progress note for the day his mother, who is nurse, accompanied the patient home and will stay with patient until friday Hospital Course 21-year-old male intubated for protection of airway with acute alcohol intoxication Acute respiratory failure with supportive ventilation overnight once alcohol sedation is resolved attempts at extubation will be directed by residential electrician Rigid cervical collar in place until patient's awake and alert Mother and father at the bedside and were updated on condition Total Time Spent: Greater than 30 minutes This includes examination of the patient, discharge planning, medication reconciliation, and communication with other providers. Discharge Instructions Please refer to the electronic Patient Visit Report (Discharge Instructions) for additional information.
== END 2016-12-07 17:35 | disposition home or self-care (01) | DRG 917 ==
LOC: EDBD 00:40 → C.EDB 00:44 → EEVIPCON 01:56 → C.MSICU 01:56 → ENRESERV 02:02 → C.2E 15:50
PROVIDERS: ADMIT Hospitalist; ATTEND Internal Medicine
PROC: 0BH17EZ Insertion of Endotracheal Airway into Trachea, Via Natural or Artificial Opening (ICD-10-PCS; principal; 2016-12-07)
PROC: 5A1935Z Respiratory Ventilation, Less than 24 Consecutive Hours (ICD-10-PCS; principal; 2016-12-07)
DX: T51.0X1A Toxic effect of ethanol, accidental (unintentional), initial encounter (principal); J96.01 Acute respiratory failure with hypoxia; F10.129 Alcohol abuse with intoxication, unspecified; E87.6 Hypokalemia; R73.9 Hyperglycemia, unspecified; E83.51 Hypocalcemia; S40.011A Contusion of right shoulder, initial encounter; S00.83XA Contusion of other part of head, initial encounter; X58.XXXA Exposure to other specified factors, initial encounter; Y90.7 Blood alcohol level of 200-239 mg/100 ml